=== PATIENT | male | born 2000 | race Caucasian/White ===

== ENCOUNTER 2022-05-03 16:27 | Emergency (ER) | payer OTHER ==
[~2022-05-03] VITALS: Ht 190.5 cm; Wt 102.2 kg
[2022-05-03] MEDS ORDERED: SODIUM CHLORIDE 0.9% 1,000 ML IV ONE (17:30)
[2022-05-03] MEDS ORDERED: ONDANSETRON HCL 4 MG/2 ML VIAL IV ONE (17:30)
[2022-05-03] MEDS ORDERED: MORPHINE SULFATE 4 MG/ML SYR/VIAL IV ONE (17:30)
[2022-05-03 18:18] LABS: Basophils # (auto) 0.1 10 ^3/uL (0-0.2); Basophils % (auto) 0.4 % (0.0-2.0); Eosinophils # (auto) 0.1 10 ^3/uL (0-0.8); Eosinophils % (auto) 0.8 % (0.0-7.0); Hematocrit 48.9 % (41.0-53.0); Hemoglobin 15.9 g/dL (13.5-17.5); Lymphocytes # (auto) 1.2 10 ^3/uL (0.4-5.4); Mean Corpuscular Hemoglobin 28.2 pg (28.0-32.0); Mean Corpuscular Hgb Conc. 32.5 g/dL (32.0-36.0); Mean Corpuscular Volume 86.7 fL (80.0-100.0); Monocytes # (auto) 0.7 10 ^3/uL (0-1.3); Monocytes % (auto) 4.4 % (0.0-12.0); Neutrophils # (auto) 13.4 10 ^3/uL (1.6-8.6); Neutrophils % (auto) 86.4 % (37.0-80.0); Red Blood Cells 5.64 10^6/uL (4.5-5.90); Red Cell Distribution Width 14.1 % (11.8-14.3); White Blood Cell 15.5 10^3/uL (4.4-10.8)
[2022-05-03 18:37] LABS: Potassium 3.9 mmol/L (3.5-5.1)
[2022-05-03 18:41] LABS: BUN/Creatinine Ratio 11.5; Calcium 8.5 mg/dL (8.5-10.1)
[2022-05-03 18:44] LABS: Bilirubin, Total 1.9 mg/dL (0.2-1.0)
[2022-05-03] MEDS ORDERED: BACITRACIN INJ 50000 UNIT VIAL TOP ONE (19:15)
[2022-05-03] MEDS ORDERED: HYDR-4902 PO (19:19)
[2022-05-03] MEDS ORDERED: HYDROcodone-ACET 5/325MG TAB PO ONE (20:15)
[2022-05-03] MEDS ORDERED: ONDANSETRON ODT 4 MG TAB PO ONE (20:15)
[2022-05-03 20:48] VITALS: BP 144/81
== END 2022-05-03 20:49 | disposition home or self-care (01) ==
LOC: ER 16:27 → EDBD 16:27 → ER 20:49
DX: S80.812A Abrasion, left lower leg, initial encounter (principal); S50.812A Abrasion of left forearm, initial encounter; M79.10 Myalgia, unspecified site; V26.49XA Other motorcycle driver injured in collision with other nonmotor vehicle in traffic accident, initial encounter; Y93.89 Activity, other specified; Y92.89 Other specified places as the place of occurrence of the external cause; Y99.8 Other external cause status
CPT/HCPCS: 36415; 70450; 71045; 71250; 72125; 73590; 73610; 74176; 80053; 85025; 93005; 99285; Q0162